=== PATIENT | male | born 1965 | race Caucasian/White ===

== ENCOUNTER 2020-02-27 18:03 | Emergency (ER) | payer MEDICAID ==
[~2020-02-27] VITALS: Ht 165.1 cm; Wt 72.6 kg
[2020-02-27 18:09] VITALS: BP_SYST 132
--- NOTE | 2020-02-27 18:09 | NUR ---
Patient to ER bed 04 to gown for evaluation. Side rails up.
--- NOTE | 2020-02-27 18:10 | NUR ---
ER Dr. NGUYEN at bedside examining patient.
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
[2020-02-27] MEDS ORDERED: OLANZapine IntraMuscular 10 MG VIAL (FOR I.M. INJECTION ONLY) IM ONE (18:15)
--- NOTE | 2020-02-27 18:15 | NUR ---
PORTABLE CXR DONE AT BEDSIDE.
--- NOTE | 2020-02-27 18:45 | NUR ---
LAB AT BEDSIDE FOR BLOOD DRAW
[2020-02-27 19:07] LABS: BARBITURATE, URINE NEGATIVE (NEG <=200); BENZODIAZEPINE, URINE NEGATIVE (NEG <=150); CANNABINOID, URINE NEGATIVE (NEG <=50); COCAINE, URINE NEGATIVE (NEG <=150); METHAMPHETAMINES SCREEN,URINE NEGATIVE (NEG <=500); OPIATE, URINE NEGATIVE (NEG <=100); PHENCYCLIDINE SCREEN,URINE NEGATIVE (NEG <=25); UR TRICYCLIC ANTIDEPRESSANTS NEGATIVE (NEG <=300); URINE AMPHETAMINE NEGATIVE (NEG <=500); URINE METHADONE NEGATIVE (NEG <=200); URINE OXYCODONE SCREEN NEGATIVE (NEG <=100); URINE PROPOXYPHENE SCREEN NEGATIVE (NEG <=300)
[2020-02-27 19:07] LABS: BASOPHILS % (AUTO) 0.9 % (0.0-2.0); EOSINOPHILS % (AUTO) 1.3 % (0.0-4.0); HEMATOCRIT 33.9 % (36-54); HEMOGLOBIN 11.3 g/dL (14.0-18.0); LYMPHOCYTES # (AUTO) 1.3 K/uL (1.0-5.5); LYMPHOCYTES % (AUTO) 35.7 % (20.5-51.5); MEAN CORPUSCULAR HEMOGLOBIN 28 pg (27-31); MEAN CORPUSCULAR HGB CONC 33 % (32-36); MEAN CORPUSCULAR VOLUME 83 fL (79.0-98.0); MONOCYTES # (AUTO) 0.3 K/uL (0.0-1.0); MONOCYTES % (AUTO) 9.3 % (1.7-9.3); NEUTROPHILS # (AUTO) 1.9 K/uL (1.8-7.7); NEUTROPHILS % (AUTO) 52.8 % (40.0-70.0); PLATELET COUNT (AUTO) 216 K/uL (130-430); RED BLOOD CELL COUNT(AUTO) 4.06 MIL/uL (4.2-6.2); RED CELL DISTRIBUTION WIDTH 22.3 % (9.0-15.0); WHITE BLOOD COUNT (AUTO) 3.6 K/uL (4.8-10.8)
--- NOTE | 2020-02-27 19:09 | NUR ---
Report given to MANUEL Plaza who will assume care
[2020-02-27 19:23] LABS: ANION GAP 9 (5-15); CHLORIDE 103 mmol/L (98-107); CREATININE 0.61 mg/dL (0.55-1.30); GLUCOSE 100 mg/dL (70-99); POTASSIUM 3.7 mmol/L (3.5-5.1); SODIUM SERUM 141 mmol/L (136-145); UREA NITROGEN, BLOOD 11 mg/dL (8-21)
[2020-02-27 19:26] LABS: INR 0.9 (0.80-1.20); PROTHROMBIN TIME 9.6 SECS (9.5-12.5)
[2020-02-27 19:37] LABS: ALANINE AMINOTRANSFERASE 48 U/L (12-78); ALBUMIN 3.6 g/dL (3.4-4.8); ALCOHOL, BLOOD 385 mg/dL (<10); AMYLASE 75 U/L (0-100); ASPARTATE AMINOTRANSFERASE 49 U/L (10-37); LIPASE 203 U/L (73-393); TOTAL BILIRUBIN 0.2 mg/dL (0.0-1.0)
[2020-02-27 19:39] LABS: GFR AFRICAN AMERICAN 184 mL/min (>90)
[2020-02-27 19:53] LABS: ACETONE, SERUM NEGATIVE (NEGATIVE)
--- NOTE | 2020-02-27 20:10 | NUR ---
Provide blankets for patient.
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
--- NOTE | 2020-02-27 21:05 | NUR ---
Patient resting quietly. No acute distress noted. Vital signs within normal range.
--- NOTE | 2020-02-27 21:39 | NUR ---
Change a new blanket for patient.
--- NOTE | 2020-02-27 22:31 | NUR ---
Patient resting quietly. No acute distress noted. Vital signs within normal range.
--- NOTE | 2020-02-27 23:08 | NUR ---
Patient walked to the restroom.
--- NOTE | 2020-02-27 23:09 | NUR ---
Change a new bed sheet and blacket.
--- NOTE | 2020-02-28 00:03 | NUR ---
Patient resting quietly. No acute distress noted. Vital signs within normal range.
--- NOTE | 2020-02-28 01:12 | NUR ---
Patient resting quietly. No acute distress noted. Vital signs within normal range.
--- NOTE | 2020-02-28 02:13 | NUR ---
Patient resting quietly. No acute distress noted. Vital signs within normal range.
--- NOTE | 2020-02-28 02:21 | NUR ---
Blood for labwork drawn from fish smoker. Patient tolerated well.
--- NOTE | 2020-02-28 03:45 | NUR ---
Patient resting quietly. No acute distress noted. Vital signs within normal range.
--- NOTE | 2020-02-28 04:53 | NUR ---
Patient resting quietly. No acute distress noted. Vital signs within normal range.
--- NOTE | 2020-02-28 05:32 | NUR ---
Patient given written and verbal discharge instructions and verbalizes understanding. ER MD discussed with patient the results and treatment provided. Patient in stable condition. ID arm band removed. No Rx given. Patient educated on pain management and to follow up with PMD. Pain Scale 0/10. Opportunity for questions provided and answered.
[2020-02-28 05:33] VITALS: BP_SYST 132
== END 2020-02-28 05:33 | disposition home or self-care (01) ==
LOC: EDBD 18:03 → SED 18:03
DX: F10.129 Alcohol abuse with intoxication, unspecified (principal); R41.82 Altered mental status, unspecified; Y90.8 Blood alcohol level of 240 mg/100 ml or more
CPT/HCPCS: 36415; 71045; 80053; 80307; 81002; 82009; 82140; 82150; 83605; 83690; 84484; 85025; 85610; 85730; 96372; 99284; G0482; J3490

== ENCOUNTER 2020-04-05 11:31 | Emergency (ER) | payer MEDICAID ==
[~2020-04-05] VITALS: Ht 165.1 cm; Wt 74.8 kg
[2020-04-05 11:33] VITALS: BP_SYST 158
[2020-04-05] MEDS ORDERED: HALOPERIDOL LACTATE 5 MG/ML VIAL IM ONE (11:45)
[2020-04-05] MEDS ORDERED: DIPHENHYDRAMINE INJ 50 MG/ML VIAL IM ONE (11:45)
[2020-04-05 17:16] VITALS: BP_SYST 158
== END 2020-04-05 17:16 | disposition left against medical advice (07) ==
LOC: SED 11:31
DX: F10.129 Alcohol abuse with intoxication, unspecified (principal)
CPT/HCPCS: 96372; 99284; J1200; J1630

== ENCOUNTER 2020-04-08 17:03 | Emergency (ER) | payer MEDICAID ==
[~2020-04-08] VITALS: Ht 167.6 cm; Wt 72.6 kg
[2020-04-08 17:14] VITALS: BP_SYST 178
--- NOTE | 2020-04-08 17:14 | NUR ---
Patient to ER bed 02 to gown for evaluation. Side rails up.
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
--- NOTE | 2020-04-08 17:25 | NUR ---
ER DR. BEAVERS AT THE BEDSIDE EVALUATING PT
[2020-04-08] MEDS ORDERED: DIPH-TET-PERTUS Vaccine 0.5 ML VIAL (ADACEL) I.M. ONE (17:45)
[2020-04-08] MEDS ORDERED: HALOPERIDOL LACTATE 5 MG/ML VIAL ONE (17:59)
[2020-04-08] MEDS ORDERED: HALOPERIDOL LACTATE 5 MG/ML VIAL IM ONE (18:00)
--- NOTE | 2020-04-08 19:14 | NUR ---
received report from MANUEL Bhardwaj for continuation of care.
--- NOTE | 2020-04-08 20:22 | NUR ---
PT SLEEPING IN BED, ABLE TO RESPOND TO QUESTIONS APPROPRIATELY, NO SIGNS OF ACUTE DISTRESS. WILL CONTINUE TO MONITOR.
[2020-04-08 21:33] VITALS: BP_SYST 114
--- NOTE | 2020-04-08 21:34 | NUR ---
PT SLEEPING IN BED, ABLE TO RESPOND TO QUESTIONS APPROPRIATELY, NO SIGNS OF ACUTE DISTRESS. WILL CONTINUE TO MONITOR. Addendum: 04/08/20 at 2136 by NEYMAR VITAL SIGNS STABLE.
--- NOTE | 2020-04-08 21:40 | NUR ---
PATIENT ELOPED. NO IV ACCESS. PT AMBULATED OUT OF THE ER WITH STEADY GAIT AND WALKED IN STRAIGHT LINE. AWARE.
== END 2020-04-08 21:40 | disposition home or self-care (01) ==
LOC: SED 17:03
DX: F10.129 Alcohol abuse with intoxication, unspecified (principal); Y90.9 Presence of alcohol in blood, level not specified
CPT/HCPCS: 70450; 70486; 72125; 76376; 96372; 99285; J1630

== ENCOUNTER 2020-08-30 14:42 | Emergency (ER) | payer MEDICAID ==
[~2020-08-30] VITALS: Ht 165.1 cm; Wt 61.2 kg
[2020-08-30 14:42] VITALS: BP_SYST 133
--- NOTE | 2020-08-30 14:42 | NUR ---
BROUGHT IN BY [facility], PLACED IN BED #4 AND TRIAGED, REPORT GIVEN TO MANDA
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
--- NOTE | 2020-08-30 15:39 | NUR ---
PT ELOPED FROM ER WITHOUT BEING SEEN BY MD. SECURITY MADE AWARE.
== END 2020-08-30 15:39 | disposition left against medical advice (07) ==
LOC: SED 14:42
DX: F10.129 Alcohol abuse with intoxication, unspecified (principal); Z53.21 Procedure and treatment not carried out due to patient leaving prior to being seen by health care provider

== ENCOUNTER 2020-08-30 18:19 | Emergency (ER) | payer MEDICAID ==
[~2020-08-30] VITALS: Ht 167.6 cm; Wt 65.8 kg
[2020-08-30 18:19] VITALS: BP_SYST 132
--- NOTE | 2020-08-30 18:19 | NUR ---
PT BROUGHT IN BY [facility], PLACED IN HALLWAY CHAIR AND TRIAGED. REPORT GIVEN TO JACK PT LEFT WITHOUT BEING SEEN FROM SD AT 1539 AFTER BEING BROUGHT IN BY AMBULANCE, PT STATES HE DRANK AND DID COCAINE
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
--- NOTE | 2020-08-30 18:45 | NUR ---
ER at bedside examining patient.
[2020-08-30 19:36] VITALS: BP_SYST 140
--- NOTE | 2020-08-30 19:36 | NUR ---
Assumed care of patient at change of shift. Patient resting comfortably at this time w/ bed to low position sr up. Patient resting quietly. No acute distress noted. Vital signs within normal range. continue to monitor.
--- NOTE | 2020-08-30 20:40 | NUR ---
Patient w/ steady gait. Walked out of the emergency room. Patient awake/alert oriented. No longer wanted ER attention or care. MD and CN informed. Patient eloped.
== END 2020-08-30 20:40 | disposition left against medical advice (07) ==
LOC: SED 18:19
DX: F10.129 Alcohol abuse with intoxication, unspecified (principal); E11.9 Type 2 diabetes mellitus without complications
CPT/HCPCS: 99283

== ENCOUNTER 2020-08-31 18:26 | Emergency (ER) | payer MEDICAID ==
[~2020-08-31] VITALS: Ht 160 cm; Wt 70.3 kg
[2020-08-31 18:31] VITALS: BP_SYST 112
[2020-08-31 21:15] VITALS: BP_SYST 112
== END 2020-08-31 21:15 | disposition home or self-care (01) ==
LOC: SED 18:26
DX: F10.129 Alcohol abuse with intoxication, unspecified (principal); E11.9 Type 2 diabetes mellitus without complications
CPT/HCPCS: 99283

== ENCOUNTER 2021-01-10 21:50 | Emergency (ER) | payer MEDICAID ==
[~2021-01-10] VITALS: Ht 170.2 cm; Wt 72.6 kg
[2021-01-10 22:04] VITALS: BP_SYST 105
[2021-01-10] MEDS ORDERED: IBUPROFEN 600 MG TABLET PO ONE (23:15)
[2021-01-11 03:21] VITALS: BP_SYST 118
== END 2021-01-11 03:11 | disposition left against medical advice (07) ==
LOC: SED 21:50
DX: M25.571 Pain in right ankle and joints of right foot (principal); F10.10 Alcohol abuse, uncomplicated; E11.9 Type 2 diabetes mellitus without complications; Z79.899 Other long term (current) drug therapy
CPT/HCPCS: 99283